=== PATIENT | male | born 2005 | race African-American/Black ===

== ENCOUNTER 2023-01-27 19:00 | Emergency (ER) | payer OTHER, BC, SELFPAY ==
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
[2023-01-27 19:13] VITALS: BP 153/97; PULSE 74; RESP 16; TEMP 37.1; O2SAT 99
== END 2023-01-27 20:19 | disposition home or self-care (01) ==
PROVIDERS: Emergency Provider Nurse Practitioner Family
DX: S09.90XA Unspecified injury of head, initial encounter (principal); S39.012A Strain of muscle, fascia and tendon of lower back, initial encounter; S16.1XXA Strain of muscle, fascia and tendon at neck level, initial encounter; V49.40XA Driver injured in collision with unspecified motor vehicles in traffic accident, initial encounter
CPT/HCPCS: 72050; 72100; 99213; G0463